=== PATIENT | female | born 1945 | race Caucasian/White ===

== ENCOUNTER 2017-04-02 07:45 | Emergency (ER) | payer MEDICARE, OTHER ==
[2017-04-02 08:34] VITALS: RESP 16; O2SAT 98
[2017-04-02 08:37] LABS: BASO # 0.1 K/uL (0.0-0.2); BASO % 0.7 % (0.0-2.0); EOS # 0.2 K/uL (0.0-0.7); EOS % 1.7 % (0.0-4.0); HEMATOCRIT 41.5 % (34.0-47.0); LYMPH # 1.9 K/uL (1.0-4.3); LYMPH % 17.6 % (20.0-40.0); MEAN CORPUSCULAR HEMOGLOBIN 28.4 pg (27.0-31.0); MEAN CORPUSCULAR HGB CONC 33.8 g/dL (33.0-37.0); MEAN PLATELET VOLUME 6.9 fL (7.2-11.7); MONO # 0.9 K/uL (0.0-0.8); MONO % 8.1 % (0.0-10.0); RED CELL DISTRIBUTION WIDTH 14.3 % (11.5-14.5)
--- NOTE | 2017-04-02 08:38 | C.PDOC ---
History Of Present Illness 72 year old female presents to the ED for evaluation of intermittent left hip pain which has been ongoing for more than one year. Patient states she undergoes MRIs "every month" and has been told that she needs a hip replacement. Patient has been managing her pain by taking Percocet, as prescribed. Patient also notes that she has been experiencing vaginal bleeding associated with lower abdominal pain for 3 months and reports using around 3 pads per day. Patient was evaluated by her BREAD WRAPPER and underwent US which was unremarkable. Patient also reports a productive cough, congestion, sore throat and subjective fever for 1 week. Patient denies headache, neck pain, vision change, dizziness, chest pain, shortness of breath, dysuria, urinary frequency, or new trauma at this time. Time Seen by Provider: 04/02/17 08:10 Chief Complaint (Nursing): Abdominal Pain History Per: Patient History/Exam Limitations: no limitations Onset/Duration Of Symptoms: Intermittent Episodes, Other (1+ year ) Current Symptoms Are (Timing): Still Present Location Of Pain/Discomfort: Other (lower abdomen ) Quality Of Discomfort: "Pain" Associated Symptoms: Fever. denies: Chest Pain, Urinary Symptoms Additional History Per: Patient Abnormal Vaginal Bleeding: Yes Past Medical History Reviewed: Historical Data, Nursing Documentation, Vital Signs Vital Signs: Last Vital Signs Temp 98 F 04/02/17 12:42 Pulse 72 04/02/17 12:42 Resp 16 04/02/17 12:42 BP 120/73 04/02/17 12:42 Pulse Ox 98 04/02/17 13:40 - Medical History PMH: HTN, Hyperlipidemia Surgical History: No Surg Hx - [facility] Procedures CLOSURE SKIN & SUBCUTANEOUS NEC (12/24/14) Family History: States: Unknown Family Hx - Social History Hx Alcohol Use: No Hx Substance Use: No - Immunization History Hx Tetanus Toxoid Vaccination: No Hx Influenza Vaccination: No Hx Pneumococcal Vaccination: No Review Of Systems Constitutional: Positive for: Fever ENT: Negative for: Nose Congestion Cardiovascular: Negative for: Chest Pain Respiratory: Negative for: Cough, Shortness of Breath Gastrointestinal: Positive for: Abdominal Pain (lower ) Genitourinary: Negative for: Dysuria, Frequency Musculoskeletal: Positive for: Other (left hip pain ). Negative for: Neck Pain Neurological: Negative for: Headache, Dizziness Physical Exam - Physical Exam Appears: Non-toxic, No Acute Distress Skin: Normal Color, Warm, Dry Head: Atraumatic, Normacephalic Eye(s): bilateral: Normal Inspection, EOMI Ear(s): Bilateral: Normal Nose: Normal, No Discharge Oral Mucosa: Moist Throat: Normal, No Erythema, No Exudate Neck: Normal ROM, Supple Chest: Symmetrical, No Deformity, No Tenderness Cardiovascular: Rhythm Regular, No Murmur Respiratory: Normal Breath Sounds, No Rales, No Rhonchi, No Wheezing Gastrointestinal/Abdominal: Soft, Tenderness (minimal, left-sided ), No Guarding , No Rebound Back: CVA Tenderness, No Vertebral Tenderness Extremity: Normal ROM, Tenderness (to left lateral hip on palpation ), No Calf Tenderness, Capillary Refill (less than 2 seconds ) Neurological/Psych: Oriented x3, Normal Speech, Normal Cognition, Normal Motor Gait: Steady ED Course And Treatment - Laboratory Results Result Diagrams: 04/02/17 08:30 04/02/17 08:30 O2 Sat by Pulse Oximetry: 98 (on RA) Pulse Ox Interpretation: Normal - CT Scan/US CT A/P Other Rad Studies (CT/US): Interpreted By Me, Read By Radiologist, Radiology Report Reviewed CT/US Interpretation: PROCEDURE: CT Abdomen and Pelvis with contrast. HISTORY : Abdominal pain. COMPARISON: None. TECHNIQUE: CT scan of the abdomen and pelvis was performed after intravenous administration of contrast. Oral contrast was not administered. Coronal and sagittal reformatted images were obtained. Contrast dose: 100 mL Visipaque. Radiation dose: Total exam DLP = 271.96 mGy-cm. This CT exam was performed using one or more of the following dose reduction techniques: Automated exposure control, adjustment of the mA and/ or kV according to patient size, and/or use of iterative reconstruction technique. FINDINGS: LOWER THORAX: There is dependent atelectasis in the visualized lungs. LIVER: There is mild hepatomegaly and diffuse fatty infiltration in the liver. No gross lesion or ductal dilatation. GALLBLADDER AND BILE DUCTS: No calcified gallstones. PANCREAS: Normal in size and there is homogeneous enhancement. No gross lesion or ductal dilatation. SPLEEN: Normal in size and appearance. ADRENALS: No discrete nodule. KIDNEYS AND URETERS: Normal in size and there is homogeneous enhancement. No hydronephrosis. No solid mass. VASCULATURE: There are atherosclerotic aortoiliac calcifications. No aortic aneurysm. BOWEL: There is mild dilatation of fluid-filled mid small bowel loops. The proximal and distal small bowel loops are normal in caliber. There is colonic diverticulosis without CT evidence for acute diverticulitis. APPENDIX: Normal appendix. PERITONEUM: No free fluid. No free air. LYMPH NODES: No enlarged lymph nodes. BLADDER: Unremarkable. REPRODUCTIVE: Bulky for the patient's age. BONES: No acute fracture. Within normal limits for the patient's age. OTHER FINDINGS: There is a small sliding hiatal hernia. IMPRESSION: 1. Mild dilatation of fluid- filled small bowel loops may represent nonspecific enteritis. No evidence of bowel obstruction. 2. Colonic diverticulosis without CT evidence for acute diverticulitis. 3. Small sliding hiatal hernia. 4. Mild hepatomegaly and fatty infiltration in the liver. Progress Note: Bloodwork, UA, and CT A/P ordered and reviewed. Bloodwork results show patient to be hypokalemic. Potassium Chloride PO administered. On reassessment, patient is resting comfortably, tolerating PO intake, remains afebrile, continues to deny chest pain and shortness of breath, and reports minimal improvement of her symptoms. Patient is provided with a copy of her CT scan results and is informed about her bloodwork resulting in hypokalemia. Patient is instructed to follow up with her PMD within 1-2 days for further evaluation and/or return to the ED if symptoms return or worsen. Information was translated to patient via Stefanie Nunn RN to ensure understanding. Disposition - Disposition Referrals: Lorrie Puentes MD [Non-Staff] - Disposition: HOME/ ROUTINE Disposition Time: 11:44 Condition: STABLE Additional Instructions: Vaya a kelley mdico o la clnica en 2-5 españa sin falta, para mas evaluacin. Mullins los medicamentos monica indicado. Volver a la magda de emergencia en cualquier momento si los sntomas persisten o empeoran. Prescriptions: Azithromycin [Zithromax] 250 mg PO DAILY #6 tab Instructions: Acute Abdominal Pain (ED) Forms: [facility] (Kyrgyz) Print Language: KHMER - Clinical Impression Clinical Impression: Abnormal vaginal bleeding, Hip pain, Bronchitis - PA / TIN WORKER / Resident Statement MD/DO has reviewed & agrees with the documentation as recorded. - Scribe Statement The provider has reviewed the documentation as recorded by the Scribe (Eileen Zimmerman) All medical record entries made by the Scribe were at my direction and personally dictated by me. I have reviewed the chart and agree that the record accurately reflects my personal performance of the history, physical exam, medical decision making, and the department course for this patient. I have also personally directed, reviewed, and agree with the discharge instructions and disposition.
[2017-04-02 08:45] LABS: CHLORIDE 97 mmol/L (98-107)
[2017-04-02 08:46] LABS: SODIUM 137 mmol/L (132-148)
[2017-04-02 08:48] LABS: ALB/GLOB RATIO 1.3 (1.0-2.1); ALKALINE PHOSPHATASE 73 U/L (38-126); ALT/SGPT 29 U/L (9-52); AST/SGOT 19 U/L (14-36); BILIRUBIN,TOTAL 0.8 mg/dL (0.2-1.3); BLOOD UREA NITROGEN 10 mg/dL (7-17); CARBON DIOXIDE 29 mmol/L (22-30); GFR AFRICAN-AMERICAN > 60; GLUCOSE,RANDOM 117 mg/dL (65-105); TOTAL PROTEIN 8.1 g/dL (6.3-8.3)
[2017-04-02 08:49] LABS: RBC URINE 5 /hpf (0-3); URINE BILIRUBIN NEGATIVE (NEGATIVE); URINE BLOOD 1+ (NEGATIVE); URINE COLOR Yellow (YELLOW); URINE GLUCOSE (UA) NORMAL (Normal); URINE KETONE NEGATIVE (NEGATIVE); URINE LEUKOCYTE ESTERASE 1+ Leu/uL (Negative); URINE PROTEIN NEGATIVE (NEGATIVE); URINE UROBILINOGEN NORMAL mg/dL (0.2-1.0); WBC URINE 5 /hpf (0-5)
[2017-04-02] MEDS ORDERED: Potassium Chloride 20 mEq ER Tab PO STA (08:55)
[2017-04-02] MEDS ORDERED: Potassium Chloride 20 mEq ER Tab PO ONE (09:10)
[2017-04-02] MEDS ORDERED: Iodixanol 320 mg/ml 150 ml Bottle IV ONE (09:47)
--- NOTE | 2017-04-02 10:59 | CT ---
PROCEDURE: CT Abdomen and Pelvis with contrast HISTORY: Abdominal pain COMPARISON: None. TECHNIQUE: CT scan of the abdomen and pelvis was performed after intravenous administration of contrast. Oral contrast was not administered. Coronal and sagittal reformatted images were obtained. Contrast dose: 100 mL Visipaque Radiation dose: Total exam DLP = 271.96 mGy-cm. This CT exam was performed using one or more of the following dose reduction techniques: Automated exposure control, adjustment of the mA and/or kV according to patient size, and/or use of iterative reconstruction technique. FINDINGS: LOWER THORAX: There is dependent atelectasis in the visualized lungs. LIVER: There is mild hepatomegaly and diffuse fatty infiltration in the liver. No gross lesion or ductal dilatation. GALLBLADDER AND BILE DUCTS: No calcified gallstones. PANCREAS: Normal in size and there is homogeneous enhancement. No gross lesion or ductal dilatation. SPLEEN: Normal in size and appearance. ADRENALS: No discrete nodule. KIDNEYS AND URETERS: Normal in size and there is homogeneous enhancement. No hydronephrosis. No solid mass. VASCULATURE: There are atherosclerotic aortoiliac calcifications. No aortic aneurysm. BOWEL: There is mild dilatation of fluid-filled mid small bowel loops. The proximal and distal small bowel loops are normal in caliber. There is colonic diverticulosis without CT evidence for acute diverticulitis. APPENDIX: Normal appendix. PERITONEUM: No free fluid. No free air. LYMPH NODES: No enlarged lymph nodes. BLADDER: Unremarkable. REPRODUCTIVE: Bulky for the patient's age. BONES: No acute fracture. Within normal limits for the patient's age OTHER FINDINGS: There is a small sliding hiatal hernia. IMPRESSION: 1. Mild dilatation of fluid-filled small bowel loops may represent nonspecific enteritis. No evidence of bowel obstruction. 2. Colonic diverticulosis without CT evidence for acute diverticulitis. 3. Small sliding hiatal hernia. 4. Mild hepatomegaly and fatty infiltration in the liver.
[2017-04-02 12:43] VITALS: BP 120/73; PULSE 72; TEMP 98
== END 2017-04-02 12:42 | disposition home or self-care (01) ==
LOC: C.ER 07:45
DX: N93.9 Abnormal uterine and vaginal bleeding, unspecified (principal); M25.552 Pain in left hip; J40 Bronchitis, not specified as acute or chronic; I10 Essential (primary) hypertension
CPT/HCPCS: 74177; 80053; 81001; 83690; 85025; 99284; Q9967